=== PATIENT | female | born 1950 | race Caucasian/White ===

== ENCOUNTER 2019-10-25 17:22 | Emergency (ER) | payer OTHER ==
--- OUTSIDE RECORDS SUMMARY | 2019-10-25 17:26 | XMS REPORT | Summary of Care ---
:1950 Author Organization [facility] Address [address] [place] [address] Care Team Providers Name Role Phone Liam Del Rosario MD Unavailable Roshan Vidal MD Primary Care Provider Reason for Visit Reason Comments SNORING (Routine) Status Reason Specialty Diagnoses / Referred By Referred To Procedures Contact Contact Closed Sleep Disorder Diagnoses Snoring Excessive daytime sleepiness Gasping for breath Roshan Vidal Diagnostic Procedures SLEEP STUDY, LASHELL Girard MD [address] [place] [address] [place] [address] Encounter Details Date Type Department Care Team Description 06/10/2019 Director Of Teenage Activities Visit [facility] Sleep Zonia Teresa [address] Shannon [address] [place] [address] [facility]LOE (ob[facility]ive [facility] Center- 1, [facility] Sleep Lab Bed sleep apnea) [address] [place] [address] Allergies Active Allergy Reactions Severity Noted Date Comments Codeine Rash 05/13/2017 documented as of this encounter (statuses as of 06/11/2019) Medications Medication Sig Dispensed Refills Start End Date Status Date metoprolol tartrate 25 mg Take 25 mg by 0 Active tablet mouth 2 (two) times daily. clopidogrel (PLAVIX) 75 Take 75 mg by 0 Active mg tablet mouth daily. Potassium Gluconate 595 Take 1 tablet by 0 Active mg (99 mg) Tab mouth daily. Magnesium 250 mg Tab Take 1 tablet by 0 Active mouth daily. metFORMIN 1,000 mg tablet Take 1,000 mg by 0 Active mouth 2 (two) 8 times daily. losartan 50 mg tablet Take 50 mg by 0 Active mouth daily. 8 glipiZIDE XL 10 mg 24 hr Take 10 mg by 0 Active tablet mouth 2 (two) 8 times daily. traMADOL 50 mg tablet Take 1 tablet by 60 tablet 0 Active mouth 2 (two) 8 times daily as needed (moderate to severe pain). vitamin B-12 (VITAMIN Take 1 tablet by 0 Active B-12) 500 mcg tablet mouth daily. 8 montelukast 10 mg Take 1 tablet by 90 tablet 1 Active tabletIndications: mouth daily. 9 Allergic rhinitis, unspecified seasonality, unspecified trigger pantoprazole 40 mg EC TAKE 1 TABLET BY 90 tablet 1 Active tabletIndications: MOUTH EVERY DAY. 9 Gastroesophageal reflux REPLACE disease, esophagitis ESOMEPRAZOLE presence not specified fluconazole 150 mg TAKE 1 TABLET BY 8 tablet 0 Active tabletIndications: Yeast MOUTH ONCE NOW 9 vaginitis FOR 1 DOSE MAY REPEAT IN 3-4 DAYS IF NEEDED XULTOPHY 100/3.6 100 inject 40 Units 0 Active unit-3.6 mg /mL (3 mL) under the skin 9 InPn daily. JARDIANCE 25 mg Tab 0 Active 9 gabapentin 300 mg Take 2 capsules 180 capsule 1 Active capsuleIndications: by mouth at 9 Neuropathy of both feet bedtime. paroxetine 30 mg Take 1 tablet by 90 tablet 1 Active tabletIndications: mouth daily. 9 Anxiety BIOTIN ORAL Take by mouth. 0 Active aspirin (ADULT LOW DOSE Take 81 mg by 0 Active ASPIRIN) 81 mg EC tablet mouth daily. LEVOTHYROXINE 100 mcg TAKE 1 TABLET BY 90 tablet 1 Active tabletIndications: MOUTH EVERY 9 Acquired hypothyroidism MORNING. REPLACES ARMOUR THYROID. ATORVASTATIN 10 mg TAKE 1 TABLET BY 90 tablet 2 Active tabletIndications: MOUTH EVERYDAY 9 Hypercholesterolemia AT BEDTIME documented as of this encounter (statuses as of 06/11/2019) Active Problems Problem Noted Date Diabetic retinopathy 12/16/2018 B12 deficiency 06/22/2018 Closed fracture of fifth metatarsal bone of left foot 05/26/2018 Low ferritin 11/28/2017 Abnormal liver function tests 10/24/2017 Overview: Elevated alkaline phosphatase Seasonal allergic rhinitis 05/13/2017 Anxiety 05/13/2017 Diabetes mellitus, type 2 05/13/2017 History of breast cancer 05/13/2017 Hyperlipidemia 05/13/2017 Essential hypertension 05/13/2017 GERD (gastroesophageal reflux disease) 05/13/2017 Fatty liver documented as of this encounter (statuses as of 06/11/2019) Resolved Problems Problem Noted Date Resolved Date Elevated BUN 10/24/2017 11/17/2017 documented as of this encounter (statuses as of 06/11/2019) Immunizations Name Administration Dates Next Due Influenza High Dose 10/20/2018 Pneumococcal 13 Conjugate, PCV13 (Prevnar 13) 10/13/2018 documented as of this encounter Social History Tobacco Use Types Packs/Day Years Used Date Former Smoker Smokeless Tobacco: Never Used Comments: Quit smoking in 1995 Alcohol Use Drinks/Week oz/Week Comments No Sex Assigned at Date Recorded Not on file Job Start Date Occupation Industry Not on file Not on file Not on file Travel History Travel Start Travel End No recent travel history available. documented as of this encounter Last Filed Vital Signs Not on filedocumented in this encounter Plan of Treatment Date Type Specialty Care Team Description 09/16/2019 Office Visit Family Medicine Roshan Vidal MD [address] [place] [address] [place] [address] Health Maintenance Due Date Last Done Comments DTaP,Tdap,and Td Vaccines (1 - 1970 Tdap) MAMMOGRAM 1991 Zoster Recombinant Vaccine 2001 (SHINGRIX) (1 of 2) Osteoporosis Screening 2016 FOOT EXAM 05/26/2019 05/26/2018, 05/26/2018 INFLUENZA VACCINE (#1) 2019 10/20/2018 PNEUMOCOCCAL VACCINES 65+ (2 of 2 10/13/2019 10/13/2018 - PPSV23) HgA1C 11/17/2019 05/17/2019, 03/16/2019, 08/29/2018 EYE EXAM 12/01/2019 11/30/2018, 10/23/2017 CREATININE (SERUM) 03/16/2020 03/16/2019, 06/15/2018, 11/10/2017, Additional history exists LDL-C 03/16/2020 03/16/2019, 06/15/2018, 10/21/2017 URINE MICROALBUMIN 03/16/2020 03/16/2019, 10/21/2017 Medicare Wellness Visit 03/30/2020 03/30/2019 COLONOSCOPY 01/08/2028 01/07/2018 HEPATITIS C (HCV) SCREEN Completed 11/21/2017 LUNG CANCER SCREEN: Recommended Discontinued for age 55-80 with 30 + pack year history documented as of this encounter Results Not on filedocumented in this encounter Visit Diagnoses Diagnosis CHLOE (obstructive sleep apnea) Obstructive sleep apnea (adult) (pediatric) documented in this encounter Insurance Payer Benefit Plan / Subscriber ID Effective Dates Phone Address Type Group AETNA AETNA INDEMNITY [id number] 2018-Bety Colónemdaja bermudez MEDICARE MEDICARE PART A xxxxxxxxxxx 2016-Doreen [phone] [facility] Medicare & B 82 [id number] [place] [phone] documented as of this encounter
--- OUTSIDE RECORDS SUMMARY | 2019-10-25 17:26 | XMS REPORT | Summary of Care ---
:1950 Author Organization [facility] Address [address] [place] [address] Care Team Providers Name Role Phone Liam Del Rosario MD Unavailable Roshan Vidal MD Primary Care Provider Reason for Visit Reason Comments Refill Request Encounter Details Date Type Department Care Team Description 06/01/2019 Refill [facility] Family Medicine Roshan Vidal MD Refill Request - [address] [address] [place] [phone] Allergies Active Allergy Reactions Severity Noted Date Comments Codeine Rash 05/13/2017 documented as of this encounter (statuses as of 06/02/2019) Medications Medication Sig Dispensed Refills Start End Status Date Date metoprolol tartrate 25 Take 25 mg by 0 Active mg tablet mouth 2 (two) times daily. clopidogrel (PLAVIX) 75 Take 75 mg by 0 Active mg tablet mouth daily. Potassium Gluconate 595 Take 1 tablet 0 Active mg (99 mg) Tab by mouth daily. Magnesium 250 mg Tab Take 1 tablet 0 Active by mouth daily. metFORMIN 1,000 mg Take 1,000 mg 0 11/17/ Active tablet by mouth 2 18 (two) times daily. losartan 50 mg tablet Take 50 mg by 0 10/17/19 Active mouth daily. 18 glipiZIDE XL 10 mg 24 Take 10 mg by 0 12/11/ Active hr tablet mouth 2 (two) 18 times daily. traMADOL 50 mg tablet Take 1 tablet 60 tablet 0 05/26/20 Active by mouth 2 18 (two) times daily as needed (moderate to severe pain). vitamin B-12 (VITAMIN Take 1 tablet 0 06/22/20 Active B-12) 500 mcg tablet by mouth daily. 18 montelukast 10 mg Take 1 tablet 90 tablet 1 10/15/19 Active tabletIndications: by mouth daily. 19 Allergic rhinitis, unspecified seasonality, unspecified trigger pantoprazole 40 mg EC TAKE 1 TABLET 90 tablet 1 10/15/19 Active tabletIndications: BY MOUTH EVERY 19 Gastroesophageal reflux DAY. REPLACE disease, esophagitis ESOMEPRAZOLE presence not specified fluconazole 150 mg TAKE 1 TABLET 8 tablet 0 11/02/19 Active tabletIndications: BY MOUTH ONCE 19 Yeast vaginitis NOW FOR 1 DOSE MAY REPEAT IN 3-4 DAYS IF NEEDED XULTOPHY 100/3.6 100 inject 40 Units 0 01/01/20 Active unit-3.6 mg /mL (3 mL) under the skin 19 InPn daily. JARDIANCE 25 mg Tab 0 01/26/20 Active 19 gabapentin 300 mg Take 2 capsules 180 capsule 1 03/16/20 Active capsuleIndications: by mouth at 19 Neuropathy of both feet bedtime. paroxetine 30 mg Take 1 tablet 90 tablet 1 03/16/20 Active tabletIndications: by mouth daily. 19 Anxiety BIOTIN ORAL Take by mouth. 0 Active aspirin (ADULT LOW DOSE Take 81 mg by 0 Active ASPIRIN) 81 mg EC mouth daily. tablet LEVOTHYROXINE 100 mcg TAKE 1 TABLET 90 tablet 1 04/15/20 Active tabletIndications: BY MOUTH EVERY 19 Acquired hypothyroidism MORNING. REPLACES ARMOUR THYROID. ATORVASTATIN 10 mg TAKE 1 TABLET 90 tablet 2 06/02/20 Active tabletIndications: BY MOUTH 19 Hypercholesterolemia EVERYDAY AT BEDTIME ATORVASTATIN 10 mg TAKE 1 TABLET 90 tablet 0 02/27/20 tabletIndications: BY MOUTH 2018 Hypercholesterolemia EVERYDAY AT BEDTIME documented as of this encounter (statuses as of 06/02/2019) Active Problems Problem Noted Date Diabetic retinopathy [...] as of this encounter (statuses as of 06/02/2019) Resolved Problems Problem Noted Date Resolved Date Elevated BUN 10/24/2017 11/17/2017 documented as of this encounter (statuses as of 06/02/2019) Immunizations Name Administration Dates Next Due Influenza [...] Treatment Date Type Specialty Care Team Description 06/10/2019 Specialty Molder Visit Sleep Disorder Zonia Teresa [address] [place] [address] Dr Shannon [address] [place] [address] [phone] Diagnostic 1, Adc Sleep Lab Bed 09/16/2019 Office Visit Family Medicine Roshan Vidal MD [address] [place] [address] [facility] [place] [phone] Health Maintenance Due Date Last Done Comments DTaP,Tdap,and Td Vaccines (1 - 1970 Tdap) MAMMOGRAM 1991 Zoster Recombinant Vaccine 2001 (SHINGRIX) (1 of 2) Osteoporosis Screening 2016 FOOT EXAM 05/26/2019 05/26/2018, 05/26/2018 INFLUENZA VACCINE (#1) 2019 10/20/2018 HgA1C 09/15/2019 03/16/2019, 08/29/2018 PNEUMOCOCCAL VACCINES 65+ (2 of 2 10/13/2019 10/13/2018 - PPSV23) EYE EXAM 12/01/2019 11/30/2018, 10/23/2017 CREATININE (SERUM) [...] filedocumented in this encounter Visit Diagnoses Diagnosis Hypercholesterolemia Pure hypercholesterolemia documented in this encounter Insurance Payer Benefit Plan / Subscriber ID Effective Dates Phone Address Type Group MEDICARE MEDICARE PART A xxxxxxxxxxx 2016-Doreen [phone] [facility] [address] Medicare & B nt 82 [id number] [place] [phone] AETNA AETNA INDEMNITY [id number] 2018-Bety Indemnity aidan documented as of this encounter
--- OUTSIDE RECORDS SUMMARY | 2019-10-25 17:26 | XMS REPORT | Summary of Care ---
:1950 Author Organization [facility] Address [address] [place] [address] Care Team Providers Name Role Phone Liam Del Rosario MD Unavailable Roshan Vidal MD Primary Care Provider Reason for Referral (Routine) Status Reason Specialty Diagnoses / Referred By Referred To Procedures Contact Contact New Request Sleep Disorder Diagnoses Snoring Excessive daytime sleepiness Gasping for breath Marcy, Diagnostic Procedures SLEEP STUDY, ATTENDED Roshan Girard MD [address] [place] [phone] Reason for Visit Reason Comments Referral/consult Encounter Details Date Type Department Care Team Description 05/17/2019 Telephone [facility] Family Roshan Vidal, Referral/ consult Medicine - [place] [address] [place] [address] [place] [address] [place], [place] [phone] Allergies Active Allergy Reactions Severity Noted Date Comments Codeine Rash 05/13/2017 documented as of this encounter (statuses as of 05/19/2019) Medications Medication Sig Dispensed Refills Start End [...] MAY REPEAT IN 3-4 DAYS IF NEEDED ATORVASTATIN 10 mg TAKE 1 TABLET BY 90 tablet 0 Active tabletIndications: MOUTH EVERYDAY 9 Hypercholesterolemia AT BEDTIME XULTOPHY 100/3.6 100 inject 40 Units 0 [...] 9 Acquired hypothyroidism MORNING. REPLACES ARMOUR THYROID. documented as of this encounter (statuses as of 05/19/2019) Active Problems Problem Noted Date Diabetic retinopathy [...] as of this encounter (statuses as of 05/19/2019) Resolved Problems Problem Noted Date Resolved Date Elevated BUN 10/24/2017 11/17/2017 documented as of this encounter (statuses as of 05/19/2019) Immunizations Name Administration Dates Next Due Influenza [...] Office Visit Family Medicine Roshan Vidal MD [address] [place] [address] [place] [address] Name Type Priority Associated Diagnoses Order Schedule SLEEP STUDY, ATTENDED PROCEDURES Routine Snoring Expected: 05/19/2019, Excessive daytime Expires: 05/19/2020 sleepiness Gasping for breath Health Maintenance Due Date Last Done Comments [...] filedocumented in this encounter Visit Diagnoses Diagnosis Snoring - Primary Other dyspnea and respiratory abnormality Excessive daytime sleepiness Gasping for breath documented in this encounter Insurance Payer Benefit Plan / Subscriber ID Effective Dates Phone Address Type Group MEDICARE MEDICARE PART xxxxxxxxxxx 2016-Doreen [phone] [facility] Medicare A & B 2 [id number] [place] [id number] documented as of this encounter
--- OUTSIDE RECORDS SUMMARY | 2019-10-25 17:27 | XMS REPORT | Summary of Care ---
:1950 Author Organization [facility] - Health Address [address] [place] [address] Care Team Providers Name Role Phone Liam Del Rosario MD Unavailable Roshan Vidal MD Primary Care Provider Encounter Details Date Type Department Care Team Description 06/10/2019 Orders Only [facility] Doctor Unassigned, [address] [facility] Name [place] [address] [place], [place] [id number] Allergies Active Allergy Reactions Severity Noted Date Comments Codeine Rash 05/13/2017 documented as of this encounter (statuses as of 06/16/2019) Medications Medication Sig Dispensed Refills Start End [...] as of this encounter (statuses as of 06/16/2019) Active Problems Problem Noted Date Diabetic retinopathy [...] as of this encounter (statuses as of 06/16/2019) Resolved Problems Problem Noted Date Resolved Date Elevated BUN 10/24/2017 11/17/2017 documented as of this encounter (statuses as of 06/16/2019) Immunizations Name Administration Dates Next Due Influenza [...] Office Visit Family Medicine Roshan Vidal MD [address] [place] [address] [place] [address] Health Maintenance Due Date Last Done [...] year history documented as of this encounter Procedures Procedure Name Priority Date/Time Associated Diagnosis Comments SLEEP STUDY DATA REPORT Routine 06/10/2019 12:01 AM CDT documented in this encounter Results Not on filedocumented in this encounter Insurance Payer Benefit Plan / Subscriber ID Effective Dates Phone Address Type Group MEDICARE MEDICARE PART A xxxxxxxxxxx 2016-Doreen [phone] [address] B [address] [id number] [place] [phone] AETNA AETNA INDEMNITY [id number] 2018-Bety Indemnity t documented as of this encounter
--- OUTSIDE RECORDS SUMMARY | 2019-10-25 17:27 | XMS REPORT | Summary of Care ---
:1950 Author Organization [facility] Address [address] [place] [address] Care Team Providers Name Role Phone Liam Del Rosario MD Unavailable Roshan Vidal MD Primary Care Provider Reason for Referral (VINOD) Status Reason Specialty Diagnoses / Referred By Referred To Procedures Contact Contact Authorized Sleep Disorder Diagnoses Severe obstructive sleep apnea Marcy, Diagnostic Procedures CONSULT/REFERRAL SLEEP CLINIC ADULT PULM Preferred Location: [facility] Roshan Girard MD [address] [place] [address] [place] [address] Reason for Visit Reason Comments Results sleep study Referral/consult Encounter Details Date Type Department Care Team Description 06/16/2019 Telephone [facility] Family Roshan Vidal, Results ( sleep study); [facility] - [place] Referral/consult [address] [place] [address] [address] [place] [address] [place] [address] Allergies Active Allergy Reactions Severity Noted Date Comments Codeine Rash 05/13/2017 documented as of this encounter (statuses as of 06/17/2019) Medications Medication Sig Dispensed Refills Start End [...] as of this encounter (statuses as of 06/17/2019) Active Problems Problem Noted Date Diabetic retinopathy 12/16/2018 B12 deficiency 06/22/2018 Closed fracture of fifth metatarsal bone of left foot 05/26/2018 Low ferritin 11/28/2017 Abnormal liver function tests 10/24/2017 Overview: Elevated alkaline phosphatase Seasonal allergic rhinitis 05/13/2017 Anxiety 05/13/2017 Diabetes mellitus, type 2 05/13/2017 History of breast cancer 05/13/2017 Hyperlipidemia 05/13/2017 Essential hypertension 05/13/2017 GERD (gastroesophageal reflux disease) 05/13/2017 Fatty liver Severe obstructive sleep apnea documented as of this encounter (statuses as of 06/17/2019) Resolved Problems Problem Noted Date Resolved Date Elevated BUN 10/24/2017 11/17/2017 documented as of this encounter (statuses as of 06/17/2019) Immunizations Name Administration Dates Next Due Influenza [...] Treatment Date Type Specialty Care Team Description 06/23/2019 Office Visit Pulmonary Disease Zonia Teresa [address] [place] [address] Dr [address] [place] [address] [phone] 09/16/2019 Office Visit Family Medicine Roshan Vidal MD [address] [facility] [place] [phone] Health Maintenance Due Date Last Done Comments [...] filedocumented in this encounter Visit Diagnoses Diagnosis Severe obstructive sleep apnea - Primary documented in this encounter Insurance Payer Benefit Plan / Subscriber ID Effective Dates Phone Address Type Group MEDICARE MEDICARE PART A xxxxxxxxxxx 2016-Doreen [phone] [address] [address] [facility] Medicare & B nt 82 [id number] [place] [id number] AETNA AETNA INDEMNITY [id number] 2018-Bety Indemnity t documented as of this encounter
--- OUTSIDE RECORDS SUMMARY | 2019-10-25 17:27 | XMS REPORT ---
:1950 Author Organization [facility] Address [address] [place] [address] Dr. [place] [place] [address] Care Team Providers Name Role Phone Unavailable Unavailable Unavailable Problems This patient has no known problems. Allergies, Adverse Reactions, Alerts This patient has no known allergies or adverse reactions. Medications This patient has no known medications.
[2019-10-25] MEDS ORDERED: IBUPROFEN 200 MG TAB PO ONE (18:40)
[2019-10-25] MEDS ORDERED: TRAMADOL HCL 50 MG TAB ONE (18:43)
--- NOTE | 2019-10-25 19:11 | RAD REPORT ---
EXAM DESCRIPTION: RAD - Chest Pa And Lat (2 Views) - 10/25/2019 7:03 pm CLINICAL HISTORY: RIB PAIN - LEFT Chest pain. COMPARISON: No comparisons FINDINGS: The lungs are clear. The heart is normal in size. No displaced fractures. IMPRESSION: No acute or concerning finding suspected.
--- NOTE | 2019-10-25 19:14 | RAD REPORT ---
EXAM DESCRIPTION: RAD - Humerus Left - 10/25/2019 7:05 pm CLINICAL HISTORY: PAIN COMPARISON: No comparisons FINDINGS: No acute fracture or dislocation seen.
--- NOTE | 2019-10-25 19:16 | RAD REPORT ---
EXAM DESCRIPTION: RAD - Forearm Left - 10/25/2019 7:05 pm CLINICAL HISTORY: PAIN COMPARISON: No comparisons FINDINGS: Mild radiocarpal arthritic changes are present. No acute fracture or dislocation.
--- NOTE | 2019-10-25 19:17 | EDPHYS ---
Physician Documentation [facility] Name: Fredrick Jacobsen Age: 69 yrs Sex: Female : 1950 Arrival Date: 10/25/2019 Time: 17:27 Bed 12 Private MD: ANA Physician Sarbjit Carrasco HPI: 10/25 18:27 This 69 yrs old Female presents to ER via Ambulatory with complaints of Fall tarsha Injury, Arm Pain, Hand Pain. 18:27 Details of fall: The patient fell from an upright position, while walking. Onset: The tarsha symptoms/episode began/occurred just prior to arrival, this morning. Associated injuries: The patient sustained decreased range of motion, hematoma, painful injury, swelling. Severity of symptoms: At their worst the symptoms were mild, moderate, in the emergency department the symptoms are unchanged. The patient has not experienced similar symptoms in the past. Historical: - Allergies: 17:38 Codeine; tw2 - Home Meds: 17:38 metformin 1,000 mg Oral tab 1 tab 2 times per day [Active]; Jardiance 25 mg oral tab 1 tw2 tab once daily [Active]; xultophy 48 units once a daily [Active]; Paxil 30 mg Oral tab 1 tab once daily [Active]; Lopressor 25 mg Oral 1 tab 2 times per day [Active]; losartan 50 mg oral tab 1 tab once daily [Active]; Lipitor 10 mg Oral tab 1 tab once daily [Active]; levothyroxine oral [Active]; Plavix 75 mg Oral tab 1 tab once daily [Active]; pantoprazole 40 mg oral TbEC 1 tab once daily [Active]; montelukast 10 mg oral tab 1 tab once daily [Active]; Calcium Carbonate Oral [Active]; magnesium 250 mg oral tab [Active]; potassium chloride Oral [Active]; gabapentin 300 mg oral cap 1 cap 3 times per day [Active]; biotin 1,000 mcg oral chew [Active]; - PMHx: 17:38 Diabetes - IDDM; Hypothyroidism; Hypertension; tw2 - PSHx: 17:38 Mastectomy, Left; Mastectomy, Right; ; Hysterectomy; Knee surgery; tw2 - Immunization history:: Adult Immunizations. - Coronavirus screen:: The patient has NOT traveled to [place], [place], or [place] in the past 14 days. - Social history:: Smoking status: . - Ebola Screening: : Patient denies travel to an Ebola-affected area in the 21 days before illness onset. ROS: 18:28 Constitutional: Negative for fever, chills, and weight loss, Eyes: Negative for injury, tarsha pain, redness, and discharge, ENT: Negative for injury, pain, and discharge, Neck: Negative for injury, pain, and swelling, Cardiovascular: Negative for chest pain, palpitations, and edema, Respiratory: Negative for shortness of breath, cough, wheezing, and pleuritic chest pain, Abdomen/GI: Negative for abdominal pain, nausea, vomiting, diarrhea, and constipation, Back: Negative for injury and pain, : Negative for injury, bleeding, discharge, and swelling, Skin: Negative for injury, rash, and discoloration, Neuro: Negative for headache, weakness, numbness, tingling, and seizure, Psych: Negative for depression, anxiety, suicide ideation, homicidal ideation, and hallucinations, Allergy/Immunology: Negative for hives, rash, and allergies, Endocrine: Negative for neck swelling, polydipsia, polyuria, polyphagia, and marked weight changes, Hematologic/Lymphatic: Negative for swollen nodes, abnormal bleeding, and unusual bruising. 18:28 MS/extremity: Positive for decreased range of motion, pain, swelling, tenderness, of the left arm. Exam: 18:28 Constitutional: This is a well developed, well nourished patient who is awake, alert, tarsha and in no acute distress. Head/Face: Normocephalic, atraumatic. Eyes: Pupils equal round and reactive to light, extra-ocular motions intact. Lids and lashes normal. Conjunctiva and sclera are non-icteric and not injected. Cornea within normal limits. Periorbital areas with no swelling, redness, or edema. ENT: Nares patent. No nasal discharge, no septal abnormalities noted. Tympanic membranes are normal and external auditory canals are clear. Oropharynx with no redness, swelling, or masses, exudates, or evidence of obstruction, uvula midline. Mucous membranes moist. Neck: Trachea midline, no thyromegaly or masses palpated, and no cervical lymphadenopathy. Supple, full range of motion without nuchal rigidity, or vertebral point tenderness. No Meningismus. Chest/axilla: Normal chest wall appearance and motion. Nontender with no deformity. No lesions are appreciated. Cardiovascular: Regular rate and rhythm with a normal S1 and S2. No gallops, murmurs, or rubs. Normal PMI, no JVD. No pulse deficits. Respiratory: Lungs have equal breath sounds bilaterally, clear to auscultation and percussion. No rales, rhonchi or wheezes noted. No increased work of breathing, no retractions or nasal flaring. Abdomen/GI: Soft, non-tender, with normal bowel sounds. No distension or tympany. No guarding or rebound. No evidence of tenderness throughout. Back: No spinal tenderness. No costovertebral tenderness. Full range of motion. Female : Normal external genitalia. Skin: Warm, dry with normal turgor. Normal color with no rashes, no lesions, and no evidence of cellulitis. Neuro: Awake and alert, GCS 15, oriented to person, place, time, and situation. Cranial nerves II-XII grossly intact. Motor strength 5/5 in all extremities. Sensory grossly intact. Cerebellar exam normal. Normal gait. Psych: Awake, alert, with orientation to person, place and time. Behavior, mood, and affect are within normal limits. 18:28 Chest/axilla: Inspection: normal, no acute changes, Palpation: tenderness, that is mild, of the left lateral posterior chest and left lateral anterior chest, Axilla: are normal, Breasts: are normal, Lymph nodes: lymphadenopathy is not appreciated. Vital Signs: 17:38 Pulse 77; Resp 17; Temp 97.6(TE); Pulse Ox 99% on R/A; Weight 95.25 kg; Height 5 ft. 9 tw2 in. (175.26 cm) (R); Pain 7/10; 17:40 BP 131 / 55; tw2 19:39 BP 129 / 61; Pulse 75; Resp 16; Temp 97.9; Pulse Ox 97% on R/A; Pain 4/10; aa1 17:38 Body Mass Index 31.01 (95.25 kg, 175.26 cm) tw2 Michael Coma Score: 17:40 Eye Response: spontaneous(4). Verbal Response: oriented(5). Motor Response: obeys tw2 commands(6). Total: 15. Trauma Score (Adult): 17:40 Eye Response: spontaneous(1); Verbal Response: oriented(1); Motor Response: obeys tw2 commands(2); Systolic BP: > 89 mm Hg(4); Respiratory Rate: 10 to 29 per min(4); [place] Score: 15; Trauma Score: 12 MDM: 17:47 Patient medically screened. [facility] 18:29 Data reviewed: vital signs, nurses notes, radiologic studies, plain films. [facility] 10/25 18:26 Order name: Hand Left 3 View XRAY; Complete Time: 19:27 [facility] 10/25 18:26 Order name: Forearm Left XRAY; Complete Time: 19:27 [facility] 10/25 18:26 Order name: Humerus Left XRAY; Complete Time: 19:27 [facility] 10/25 18:29 Order name: Chest Pa And Lat (2 Views) XRAY; Complete Time: 19:16 [facility] 10/25 18:26 Order name: Ice pack; Complete Time: 18:35 [facility] 10/25 19:16 Order name: Sling; Complete Time: 19:38 [facility] 10/25 19:30 Order name: Splint - Ulnar Gutter; Complete Time: 07:02 [facility] Administered Medications: 18:43 Drug: traMADol 50 mg Route: PO; iw 19:38 Follow up: Response: No adverse reaction; Pain is decreased aa1 18:43 Not Given (Patient Refused): Motrin 600 mg PO once iw Disposition: 10/25/19 19:17 Discharged to Home. Impression: Fall due to bumping against object, Contusion of left front wall of thorax, Contusion of left back wall of thorax, Contusion of left hand, Pain in left wrist, Pain in left elbow, Pain in left shoulder, Displaced fracture of base of fifth metacarpal bone. left hand. - Condition is Stable. - Discharge Instructions: Metacarpal Fracture, Musculoskeletal Pain, Shoulder Pain, Wrist Pain, Elbow Contusion, Shoulder Range of Motion Exercises, Shoulder Pain, Uxqs-vi-Criu, Metacarpal Fracture, Lwer-uc-Lekw, Wrist Pain, Vdfj-np-Qxcn, Fall Prevention in the Home, Zonq-hj-Egkk, Arthritis, Renv-jk-Bquc, Hand Pain. - Prescriptions for Tramadol 50 mg Oral Tablet - take 1 tablet by ORAL route every 8 hours as needed; 30 tablet. - Medication Reconciliation Form, Thank You Letter, Antibiotic Education, Prescription Opioid Use form. - Follow up: Private Physician; When: 2 - 3 days; Reason: Recheck today's complaints, Continuance of care, Re-evaluation by your physician. Follow up: Wilton Leal MD; When: 2 - 3 days; Reason: Recheck today's complaints, Re-evaluation by your physician. Follow up: Lake Burns MD; When: 2 - 3 days; Reason: Recheck today's complaints, Continuance of care, Re-evaluation by your physician. - Problem is new. - Symptoms have improved. Signatures: Dispatcher [employer] EDNE Griselda Crawley RN RN aa1 Sarbjit Carrasco MD MD cha Williams, Irene, RN RN iw Ila Summers RN RN tw2 Corrections: (The following items were deleted from the chart) 19:02 18:27 Elbow Left 3 View+RAD.RAD.BRZ ordered. [facility] 19:29 19:17 10/25/2019 19:17 Discharged to Home. Impression: Fall due to bumping against tarsha object; Contusion of left front wall of thorax; Contusion of left back wall of thorax; Contusion of left hand; Pain in left wrist; Pain in left elbow; Pain in left shoulder. Condition is Stable. Discharge Instructions: Musculoskeletal Pain, Shoulder Pain, Wrist Pain, Elbow Contusion, Shoulder Range of Motion Exercises, Shoulder Pain, Tjag-uq-Vdda, Wrist Pain, Ntvn-ny-Dpum, Fall Prevention in the Home, Wqfi-dx-Jxwr, Arthritis, Totp-mc-Thtq, Hand Pain. Prescriptions for Tramadol 50 mg Oral Tablet - take 1 tablet by ORAL route every 8 hours as needed; 30 tablet. and Forms are Medication Reconciliation Form, Thank You Letter, Antibiotic Education, Prescription Opioid Use. Follow up: Private Physician; When: 2 - 3 days; Reason: Recheck today's complaints, Continuance of care, Re-evaluation by your physician. Follow up: Wilton Leal; When: 2 - 3 days; Reason: Recheck today's complaints, Re-evaluation by your physician. Problem is new. Symptoms have improved. [facility] 19:41 19:29 10/25/2019 19:17 Discharged to Home. Impression: Fall due to bumping against aa1 object; Contusion of left front wall of thorax; Contusion of left back wall of thorax; Contusion of left hand; Pain in left wrist; Pain in left elbow; Pain in left shoulder; Displaced fracture of base of fifth metacarpal bone. left hand. Condition is Stable. Discharge Instructions: Musculoskeletal Pain, Shoulder Pain, Wrist Pain, Elbow Contusion, Shoulder Range of Motion Exercises, Shoulder Pain, Fuaq-rf-Ihqe, Wrist Pain, Gysh-vf-Unhp, Fall Prevention in the Home, Vrlq-nn-Yyxy, Arthritis, Eqim-mg-Ojvz, Hand Pain. Prescriptions for Tramadol 50 mg Oral Tablet - take 1 tablet by ORAL route every 8 hours as needed; 30 tablet. and Forms are Medication Reconciliation Form, Thank You Letter, Antibiotic Education, Prescription Opioid Use. Follow up: Private Physician; When: 2 - 3 days; Reason: Recheck today's complaints, Continuance of care, Re-evaluation by your physician. Follow up: Lake Burns; When: 2 - 3 days; Reason: Recheck today's complaints, Continuance of care, Re-evaluation by your physician. Problem is new. Symptoms have improved. tarsha
--- NOTE | 2019-10-25 19:17 | ER ---
Nurse's Notes [facility] Name: Fredrick Jacobsen Age: 69 yrs Sex: Female : 1950 Arrival Date: 10/25/2019 Time: 17:27 Bed 12 Private MD: Diagnosis: Fall due to bumping against object;Contusion of left front wall of thorax;Contusion of left back wall of thorax;Contusion of left hand;Pain in left wrist;Pain in left elbow;Pain in left shoulder;Displaced fracture of base of fifth metacarpal bone. left hand Presentation: 10/25 17:29 Presenting complaint: Patient states: i fell in [place] and hit my head about 1 or 2 tw2 day on the freezer, i am on blood thinners, i tripped on one of those chacho things, i mostly have LEFT hand hand, left elbow, left shoulder and left rib pain. Transition of care: patient was not received from another setting of care. Onset of symptoms was October 25, 2019. Risk Assessment: Do you want to hurt yourself or someone else? Patient reports no desire to harm self or others. Initial Sepsis Screen: Does the patient meet any 2 criteria? No. Patient's initial sepsis screen is negative. Does the patient have a suspected source of infection? No. Patient's initial sepsis screen is negative. Care prior to arrival: None. 17:29 Method Of Arrival: Ambulatory tw2 17:29 Acuity: TEQUILA 4 tw2 17:40 Mechanism of Injury: Fall from standing position. Trauma event details: Injury occurred tw2 in the [facility]. Triage Assessment: 17:31 General: Appears in no apparent distress. Behavior is calm, cooperative, appropriate tw2 for age. Pain: Complains of pain in left hand and left arm, left shoulder, and left ribs. Musculoskeletal: Reports swelling in left hand and arm, limited shoulder mobility. Trauma Activation: Alert Physician: ED Physician; Name: ; Notified At: ; Arrived At: Physician: General Surgeon; Name: ; Notified At: ; Arrived At: Physician: Radiology; Name: ; Notified At: ; Arrived At: Physician: Respiratory; Name: ; Notified At: ; Arrived At: Physician: Lab; Name: ; Notified At: ; Arrived At: Historical: - Allergies: 17:38 Codeine; tw2 - Home Meds: 17:38 metformin 1,000 mg Oral tab 1 tab 2 times per day [Active]; Jardiance 25 mg oral tab 1 tw2 tab once daily [Active]; xultophy 48 units once a daily [Active]; Paxil 30 mg Oral tab 1 tab once daily [Active]; Lopressor 25 mg Oral 1 tab 2 times per day [Active]; losartan 50 mg oral tab 1 tab once daily [Active]; Lipitor 10 mg Oral tab 1 tab once daily [Active]; levothyroxine oral [Active]; Plavix 75 mg Oral tab 1 tab once daily [Active]; pantoprazole 40 mg oral TbEC 1 tab once daily [Active]; montelukast 10 mg oral tab 1 tab once daily [Active]; Calcium Carbonate Oral [Active]; magnesium 250 mg oral tab [Active]; potassium chloride Oral [Active]; gabapentin 300 mg oral cap 1 cap 3 times per day [Active]; biotin 1,000 mcg oral chew [Active]; - PMHx: 17:38 Diabetes - IDDM; Hypothyroidism; Hypertension; tw2 - PSHx: 17:38 Mastectomy, Left; Mastectomy, Right; ; Hysterectomy; Knee surgery; tw2 - Immunization history:: Adult Immunizations. - Coronavirus screen:: The patient has NOT traveled to [place], [place], or [place] in the past 14 days. - Social history:: Smoking status: . - Ebola Screening: : Patient denies travel to an Ebola-affected area in the 21 days before illness onset. Screenin:05 Abuse screen: Denies threats or abuse. Nutritional screening: No deficits noted. tw2 Tuberculosis screening: No symptoms or risk factors identified. Fall Risk None identified. Primary Survey: 17:40 NO uncontrolled hemorrhage observed. A: The patient is alert. A: Airway: patent. tw2 Breathing/Chest: Respiratory pattern: regular, Respiratory effort: spontaneous, unlabored. Circulation: Skin color: pink, Skin temperature: warm, dry. Disability Alert. Exposure/Environment: All clothing and personal items were removed. Forensic evidence collection is not deemed to be indicated at this time. Items placed in patient belonging bag. Assessment: 17:45 General: Appears in no apparent distress. Behavior is calm, cooperative, appropriate tw2 for age. Neuro: Level of Consciousness is awake, alert, obeys commands, Oriented to person, place, time, situation. Neuro: Reports "i did hit my head but my arms hurts so much and i was embarrassed that i dont even remember if my head hurt then or not". Cardiovascular: Patient's skin is warm and dry. Respiratory: Airway is patent Respiratory effort is even, unlabored, Respiratory pattern is regular, symmetrical. GI: No signs and/or symptoms were reported involving the gastrointestinal system. : No signs and/or symptoms were reported regarding the genitourinary system. EENT: No signs and/or symptoms were reported regarding the EENT system. Derm: No signs and/or symptoms reported regarding the dermatologic system. Musculoskeletal: Reports pain in LEFT hand, arm, shoulder, ribs. 18:47 Reassessment: Patient appears in no apparent distress at this time. No changes from tw2 previously documented assessment. Patient and/or family updated on plan of care and expected duration. Pain level reassessed. Patient is alert, oriented x 3, equal unlabored respirations, skin warm/dry/pink. xray at bedside at this time. 19:39 Reassessment: Patient appears in no apparent distress at this time. Patient is alert, aa1 oriented x 3, equal unlabored respirations, skin warm/dry/pink. Discussed d/c \\T\\ f/u instructions with pt; denies questions or concerns at this time. Ambulatory to lobby with steady gait. Patient states symptoms have improved. Vital Signs: 17:38 Pulse 77; Resp 17; Temp 97.6(TE); Pulse Ox 99% on R/A; Weight 95.25 kg; Height 5 ft. 9 tw2 in. (175.26 cm) (R); Pain 7/10; 17:40 BP 131 / 55; tw2 19:39 BP 129 / 61; Pulse 75; Resp 16; Temp 97.9; Pulse Ox 97% on R/A; Pain 4/10; aa1 17:38 Body Mass Index 31.01 (95.25 kg, 175.26 cm) tw2 Michael Coma Score: 17:40 Eye Response: spontaneous(4). Verbal Response: oriented(5). Motor Response: obeys tw2 commands(6). Total: 15. Trauma Score (Adult): 17:40 Eye Response: spontaneous(1); Verbal Response: oriented(1); Motor Response: obeys tw2 commands(2); Systolic BP: > 89 mm Hg(4); Respiratory Rate: 10 to 29 per min(4); [place] Score: 15; Trauma Score: 12 ED Course: 17:27 Patient arrived in ED. mr 17:31 Triage completed. tw2 17:31 Arm band placed on. tw2 17:40 Bed in low position. Call light in reach. tw2 17:47 Sarbjit Carrasco MD is Attending Physician. tarsha 18:28 Kamryn Todd, RN is Primary Nurse. iw 19:01 Chest Pa And Lat (2 Views) XRAY In Process Unspecified. EDMS 19:05 Hand Left 3 View XRAY In Process Unspecified. EDMS 19:05 Forearm Left XRAY In Process Unspecified. EDMS 19:05 Humerus Left XRAY In Process Unspecified. EDMS 19:16 Wilton Leal MD is Referral Physician. tarsha 19:29 Referral Physician role handed off by Wilton Leal MD tarsha 19:29 Lake Burns MD is Referral Physician. tarsha 19:39 No provider procedures requiring assistance completed. Patient did not have IV access aa1 during this emergency room visit. Orthoglass splint: Ulnar gutter/Boxer splint applied on left forearm. Sling applied to left arm. Administered Medications: 18:43 Drug: traMADol 50 mg Route: PO; iw 19:38 Follow up: Response: No adverse reaction; Pain is decreased aa1 18:43 Not Given (Patient Refused): Motrin 600 mg PO once iw Outcome: 19:17 Discharge ordered by . tarsha 19:39 Discharged to home ambulatory. aa1 19:39 Condition: good 19:39 Discharge instructions given to patient, Instructed on discharge instructions, follow up and referral plans. medication usage, Demonstrated understanding of instructions, follow-up care, medications, splint care, Prescriptions given X 1. 19:41 Patient left the ED. aa1 Signatures: Dispatcher [employer] EDMS Griselda Crawley RN RN aa1 Sarbjit Carrasco MD MD cha Rivera, Mary mr Kamryn Todd, RN SUNDEEP iw Ila Summers RN RN tw2
--- NOTE | 2019-10-25 19:23 | RAD REPORT ---
EXAM DESCRIPTION: RAD - Hand Left 3 View - 10/25/2019 7:05 pm CLINICAL HISTORY: PAIN COMPARISON: No comparisons FINDINGS: Mildly displaced fracture at the base of the fifth metacarpal is seen. Mild adjacent soft tissue swelling. No dislocation.
[2019-10-25 19:50] VITALS: BP 129/61; TEMP 97.9; O2SAT 97
== END 2019-10-25 19:41 | disposition home or self-care (01) ==
LOC: ER 17:22
DX: S62.317A Displaced fracture of base of fifth metacarpal bone, left hand, initial encounter for closed fracture (principal); S20.212A Contusion of left front wall of thorax, initial encounter; S20.222A Contusion of left back wall of thorax, initial encounter; S60.222A Contusion of left hand, initial encounter; M25.512 Pain in left shoulder; M25.522 Pain in left elbow; M25.532 Pain in left wrist; W18.00XA Striking against unspecified object with subsequent fall, initial encounter; Y93.9 Activity, unspecified; Y92.9 Unspecified place or not applicable; I10 Essential (primary) hypertension; E03.9 Hypothyroidism, unspecified; E11.9 Type 2 diabetes mellitus without complications; Z79.01 Long term (current) use of anticoagulants
CPT/HCPCS: 71046; 99284